=== PATIENT | female | born 1955 | race Caucasian/White ===

== ENCOUNTER 2021-08-23 11:09 | Emergency (ER) | payer OTHER ==
[~2021-08-23] VITALS: Ht 152.4 cm; Wt 113.4 kg
[2021-08-23] MEDS ORDERED: ULTRAM50 MG PO (11:23)
[2021-08-23] MEDS ORDERED: METHOTREXATE2.5 MG PO (11:24)
[2021-08-23] MEDS ORDERED: METHOCARBAMOL500 MG PO (11:25)
[2021-08-23] MEDS ORDERED: SYNTHROID150 MCG PO (11:25)
[2021-08-23] MEDS ORDERED: HORIZANT300 MG (11:25)
[2021-08-23] MEDS ORDERED: IRBESARTAN-HCT1 EACH PO (11:27)
[2021-08-23] MEDS ORDERED: MAGNESIUM400 MG PO (11:27)
[2021-08-23] MEDS ORDERED: CEVIMELINE HCL30 MG PO (11:27)
[2021-08-23] MEDS ORDERED: WELLBUTRIN XL300 MG PO (11:27)
[2021-08-23] MEDS ORDERED: ACTICAL SOFTGE1 EACH PO (11:28)
[2021-08-23] MEDS ORDERED: ROCALTROL0.25 MCG PO (11:28)
[2021-08-23] MEDS ORDERED: AMLODIPINE-OLM1 EAC2 PO (11:29)
[2021-08-23] MEDS ORDERED: VAZALORE81 MG PO (11:29)
== END 2021-08-23 14:24 | disposition home or self-care (01) ==
LOC: ER 11:09
DX: U07.1 COVID-19 (principal); I10 Essential (primary) hypertension; E03.9 Hypothyroidism, unspecified

== ENCOUNTER 2021-11-15 07:27 | Outpatient (CLI) | payer OTHER ==
[~2021-11-15 07:27] MED LIST: ACTICAL SOFTGE1 EACH PO; AMLODIPINE-OLM1 EAC2 PO; CEVIMELINE HCL30 MG PO; HORIZANT300 MG; IRBESARTAN-HCT1 EACH PO; MAGNESIUM400 MG PO; METHOCARBAMOL500 MG PO; METHOTREXATE2.5 MG PO; ROCALTROL0.25 MCG PO; SYNTHROID150 MCG PO; ULTRAM50 MG PO; VAZALORE81 MG PO; WELLBUTRIN XL300 MG PO
== END 2021-11-15 07:28 | disposition home or self-care (01) ==
LOC: NUCLEAR 07:27
PROVIDERS: ATTEND Internal Medicine
DX: R07.9 Chest pain, unspecified (principal)

== ENCOUNTER 2023-04-02 17:35 | Emergency (ER) | payer OTHER ==
[~2023-04-02] VITALS: Ht 152.4 cm; Wt 114.3 kg
[2023-04-02] MEDS ORDERED: MOBIC7.5 MG PO (20:15)
== END 2023-04-02 20:30 | disposition home or self-care (01) ==
LOC: ER 17:35
DX: M54.89 Other dorsalgia (principal); M54.2 Cervicalgia; R51.9 Headache, unspecified; E03.9 Hypothyroidism, unspecified; I10 Essential (primary) hypertension
CPT/HCPCS: 36415; 96365; 99283; J1885; J2270; J3490

== ENCOUNTER 2023-10-02 07:19 | Outpatient (CLI) | payer OTHER ==
[~2023-10-02 07:19] MED LIST changes: +MOBIC7.5 MG PO
== END 2023-10-02 07:21 | disposition home or self-care (01) ==
LOC: NUCLEAR 07:19
PROVIDERS: ATTEND Internal Medicine
DX: I10 Essential (primary) hypertension (principal); R07.9 Chest pain, unspecified
CPT/HCPCS: 78452; 93017; A9500

== ENCOUNTER 2023-11-22 16:26 | Emergency (ER) | payer OTHER ==
[~2023-11-22] VITALS: Ht 152.4 cm; Wt 104.3 kg
[2023-11-22] MEDS ORDERED: HUMIRA40 MG/0.2 (16:43)
[2023-11-22] MEDS ORDERED: METHYLPREDNISOLONE SOD SUCC 125 MG VIAL IV STA (17:08)
[2023-11-22] MEDS ORDERED: TRAMADOL HCL 50 MG TABLET PO STA (17:08)
== END 2023-11-22 17:51 | disposition home or self-care (01) ==
LOC: ER 16:27
DX: M25.59 Pain in other specified joint (principal); M06.8A Other specified rheumatoid arthritis, other specified site
CPT/HCPCS: 96365; 99282; J3490

== ENCOUNTER 2024-09-15 08:02 | Emergency (ER) | payer OTHER ==
[~2024-09-15] VITALS: Ht 152.4 cm; Wt 97.5 kg
[~2024-09-15 08:02] MED LIST changes: +HUMIRA40 MG/0.2
[2024-09-15] MEDS ORDERED: KETOROLAC TROMETHAMINE 30 MG VIAL ONE (09:13)
== END 2024-09-15 12:22 | disposition home or self-care (01) ==
LOC: ER 08:09
DX: S89.81XA Other specified injuries of right lower leg, initial encounter (principal); W19.XXXA Unspecified fall, initial encounter; Y93.89 Activity, other specified; Y92.89 Other specified places as the place of occurrence of the external cause; Y99.8 Other external cause status; M25.522 Pain in left elbow; M25.561 Pain in right knee; R07.81 Pleurodynia

== ENCOUNTER 2024-12-04 16:31 | Emergency (ER) | payer OTHER ==
[~2024-12-04] VITALS: Ht 152.4 cm; Wt 95.3 kg
[2024-12-04] MEDS ORDERED: KETOROLAC TROMETHAMINE 30 MG VIAL IV STA (18:36)
[2024-12-04] MEDS ORDERED: DIPHENHYDRAMINE HCL 50 MG/ML VIAL 1ML IM STA (18:36)
[2024-12-04] MEDS ORDERED: HALOPERIDOL LACTATE 5 MG/ML AMPUL IM STA (18:36)
[2024-12-04] MEDS ORDERED: KETOROLAC TROMETHAMINE 60 MG VIAL IM ONE (18:53)
[2024-12-04] MEDS ORDERED: DIPHENHYDRAMINE HCL 50 MG/ML VIAL 1ML ONE (18:53)
[2024-12-04] MEDS ORDERED: HALOPERIDOL LACTATE 5 MG/ML AMPUL ONE (18:57)
== END 2024-12-04 20:42 | disposition home or self-care (01) ==
LOC: ER 16:32
DX: G43.909 Migraine, unspecified, not intractable, without status migrainosus (principal)